=== PATIENT | female | born 1995 | race Two or more races ===

== ENCOUNTER 2023-02-16 09:01 | Outpatient (CLI) | payer OTHER | END 2023-02-16 09:02 | disposition home or self-care (01) | LOC: PRENATAL 09:01 | PROVIDERS: ATTEND Obstetrics & Gynecology Maternal & Fetal Medicine | DX: O36.80X0 Pregnancy with inconclusive fetal viability, not applicable or unspecified (principal); Z36.82 Encounter for antenatal screening for nuchal translucency; Z3A.12 12 weeks gestation of pregnancy ==

== ENCOUNTER 2023-04-17 13:23 | Outpatient (CLI) | payer OTHER | END 2023-04-17 13:24 | disposition home or self-care (01) | LOC: PRENATAL 13:23 | PROVIDERS: ATTEND Obstetrics & Gynecology Maternal & Fetal Medicine | DX: O35.3XX0 Maternal care for (suspected) damage to fetus from viral disease in mother, not applicable or unspecified (principal); O44.00 Complete placenta previa NOS or without hemorrhage, unspecified trimester; Z3A.21 21 weeks gestation of pregnancy ==

== ENCOUNTER 2023-08-21 14:00 | Inpatient (IN) | payer OTHER ==
[~2023-08-21] VITALS: Ht 152.4 cm; Wt 3.2 kg
[2023-08-21 15:40] LABS: INR < 0.93; PROTHROMBIN TIME 9.6 SECONDS (9.0-11.5)
[2023-08-22] MEDS ORDERED: RINGERS SOLUTION,LACTATED 1,000 ML IV SCH (06:30)
[2023-08-22] MEDS ORDERED: MISOPROSTOL 50 MCG TABLET VAG NR (07:45)
[2023-08-22] MEDS ORDERED: MISOPROSTOL 50 MCG TABLET VAG ONE (11:00)
[2023-08-22] MEDS ORDERED: OXYTOCIN 500 ML IV SCH (15:15)
[2023-08-22] MEDS ORDERED: PROMETHAZINE HCL 25 MG/ML AMPUL IV ONE (17:00)
[2023-08-22] MEDS ORDERED: MEPERIDINE HCL/PF 25 MG/ML VIAL IV ONE (17:00)
[2023-08-22] MEDS ORDERED: ACYCLOVIR 400 MG TABLET PO ONE (19:30)
[2023-08-22] MEDS ORDERED: CEFAZOLIN SODIUM 1,000 MG VIAL IV ONE (23:15)
[2023-08-22] MEDS ORDERED: OXYTOCIN 10 UNITS/ML VIAL ONE (23:47)
[2023-08-22] MEDS ORDERED: ERYTHROMYCIN BASE 1 GM TUBE OP ONE (23:48)
[2023-08-23] MEDS ORDERED: PROMETHAZINE HCL 25 MG/ML AMPUL IV PRN (01:15)
[2023-08-23] MEDS ORDERED: OXYTOCIN 1,000 ML IV SCH (01:15)
[2023-08-23] MEDS ORDERED: KETOROLAC TROMETHAMINE 30 MG VIAL IV SCH (01:15)
[2023-08-23] MEDS ORDERED: ERYTHROMYCIN BASE 1 GM TUBE OP SCH (01:15)
[2023-08-23] MEDS ORDERED: CHLORHEXIDINE GLUCONATE 120 ML BOTTLE TOP NR (01:15)
[2023-08-23] MEDS ORDERED: MEPERIDINE HCL/PF 25 MG/ML VIAL IV PRN (01:15)
[2023-08-23] MEDS ORDERED: FAMOTIDINE/PF 20 MG/2 ML VIAL IV SCH (01:16)
[2023-08-23] MEDS ORDERED: ONDANSETRON HCL 2 MG/ML VIAL IV PRN (01:30)
[2023-08-23 06:57] LABS: HEMATOCRIT 34.2 % (36.0-45.00); HEMOGLOBIN 11.8 g/dL (12.0-15.00); MEAN CELL VOLUME 91.4 fL (80.00-100.00); MEAN CORPUSCULAR HEMOGLOBIN 31.6 pg (27.00-32.0); MEAN CORPUSCULAR HGB CONC 34.5 g/dl (32.0-36.0); PLATELET COUNT 171 K/uL (150-450); RED BLOOD COUNT 3.74 M/uL (4.00-6.00); RED CELL DISTRIBUTION WIDTH 13.7 % (11.5-14.5)
[2023-08-23] MEDS ORDERED: SIMETHICONE 125 MG CAPSULE PO SCH (13:17)
[2023-08-23] MEDS ORDERED: DOCUSATE SODIUM 100MG CAP PO SCH (13:17)
[2023-08-23] MEDS ORDERED: OxyCODONE HCL/APAP UD (PERCOCET) PO PRN (13:30)
[2023-08-23] MEDS ORDERED: IBUprofen 800 MG TABLET PO PRN (13:30)
== END 2023-08-26 16:01 | disposition home or self-care (01) | DRG 788 ==
LOC: LDR 08-22 06:22 → OB/GYN 08-22 06:22
PROVIDERS: ADMIT General Practice; ATTEND General Practice
PROC: 3E0P7VZ Introduction of Hormone into Female Reproductive, Via Natural or Artificial Opening (ICD-10-PCS; 2023-08-22)
PROC: 4A1HXCZ Monitoring of Products of Conception, Cardiac Rate, External Approach (ICD-10-PCS; 2023-08-22)
PROC: 3E033VJ Introduction of Other Hormone into Peripheral Vein, Percutaneous Approach (ICD-10-PCS; 2023-08-23)
PROC: 10D00Z1 Extraction of Products of Conception, Low, Open Approach (ICD-10-PCS; principal; 2023-08-23 07:00)
DX: O82 Encounter for cesarean delivery without indication (principal); Z3A.39 39 weeks gestation of pregnancy; Z37.0 Single live birth; Z20.822 Contact with and (suspected) exposure to COVID-19